=== PATIENT | male | born 1990 | race Caucasian/White ===

== ENCOUNTER 2016-09-22 13:16 | Emergency (ER) | payer SELFPAY ==
[2016-09-22 14:07] VITALS: BP 102/62
[2016-09-22] MEDS ORDERED: HYDROcodone/ACETAMIN 5-325 MG* 1 TAB PO ONE (14:22)
[2016-09-22] MEDS ORDERED: Penicillin VK TAB* 250 MG PO ONE (14:22)
--- NOTE | 2016-09-22 14:25 | UC ---
Dental HPI - HPI Summary HPI Summary: 25 yo male with dental pain and left cheek swelling x 1 day no f.c no relief with motrin - History of Current Complaint Chief Complaint: UCDentalProblem Stated Complaint: DENTAL COMPLAINT Time Seen by Provider: 09/22/16 13:58 Hx Obtained From: Patient Pain Intensity: 8 Pain Scale Used: Adult Non Verbal Aggravating: Heat, Cold, Chewing Alleviating: Nothing Related History: Swelling - Allergies/Home Medications Allergies/Adverse Reactions: Allergies Allergy/AdvReac Type Severity Reaction Status Date / Time Codeine Allergy GI Upset Verified 09/22/16 13:58 PMH/Surg Hx/FS Hx/Imm Hx Previously Healthy: Yes - Surgical History Surgical History: None - Family History Known Family History: Positive: Unknown - raised in foster care - Social History Alcohol Use: None Substance Use Type: None Smoking Status (MU): Light Every Day Tobacco Smoker Type: Cigarettes Amount Used/How Often: 5 CIGS DAILY Review of Systems Constitutional: Negative Skin: Negative Eyes: Negative ENT: Dental Pain Respiratory: Negative Cardiovascular: Negative Gastrointestinal: Negative Genitourinary: Negative Motor: Negative Neurovascular: Negative Musculoskeletal: Negative Neurological: Negative Psychological: Negative All Other Systems Reviewed And Are Negative: Yes Physical Exam Triage Information Reviewed: Yes Appearance: Well-Appearing, Well-Nourished, Pain Distress Vital Signs: Initial Vital Signs Temp 98.8 F 09/22/16 14:01 Pulse 86 09/22/16 14:01 Resp 18 09/22/16 14:01 BP 102/62 09/22/16 14:01 Pulse Ox 100 09/22/16 14:01 Vital Signs Reviewed: Yes Eyes: Positive: Conjunctiva Clear ENT: Positive: Hearing grossly normal. Negative: Nasal congestion, Nasal drainage, Trismus, Muffled/hoarse voice Dental: Positive: Cervical Lymphadenopathy, Other: - abysmal dentition/swollen gums/many teeth rotted to gum line Neck: Positive: Supple Respiratory: Positive: Lungs clear, Normal breath sounds, No respiratory distress, No accessory muscle use Cardiovascular Exam: Normal Musculoskeletal: Positive: ROM Intact, No Edema Neurological: Positive: Alert Psychological Exam: Normal Skin Exam: Normal Dental Complaint Course/Dx - Differential Dx/Diagnosis Provider Diagnoses: acute dentalgia. suspect dental abscess Discharge - Discharge Plan Condition: Stable Disposition: HOME Prescriptions: HYDROcodone/ACETAMIN 5-325 MG* [Orting 5-325 TAB*] 1 tab PO Q4H PRN #12 tab MDD 6 PRN Reason: Pain (Dental) Ibuprofen TAB* [Motrin TAB*] 600 mg PO Q6H PRN #40 tab PRN Reason: Pain Penicillin VK 500 MG TAB(NF) [Penicillin VK 500 mg Tab] 500 mg PO QID #28 tab Patient Education Materials: Toothache (ED) Forms: *Work Release Referrals: Alea Villagoemz MD [Primary Care Provider] - Additional Instructions: see dentist first available appt to er for new or worsening symptoms or if not better in 2 days
== END 2016-09-22 14:38 | disposition home or self-care (01) ==
LOC: UCCORT 13:16
DX: K08.89 Other specified disorders of teeth and supporting structures (principal); Z88.5 Allergy status to narcotic agent; F17.210 Nicotine dependence, cigarettes, uncomplicated
CPT/HCPCS: 99212; A9270-GY; G0463

== ENCOUNTER 2016-10-22 17:01 | Emergency (ER) | payer SELFPAY ==
[2016-10-22 17:09] VITALS: BP 113/69
[2016-10-22] MEDS ORDERED: Clindamycin CAP* 150 MG PO ONE ×2 (17:28→17:30)
--- NOTE | 2016-10-22 17:29 | UC ---
UC Dental HPI - HPI Summary HPI Summary: dental pain x 2 days no change with motrin bump upper gum no f/v - History of Current Complaint Chief Complaint: UCDentalProblem Stated Complaint: TOOTH PAIN Time Seen by Provider: 10/22/16 17:24 Hx Obtained From: Patient Onset/Duration: Gradual Onset Severity: Severe Pain Intensity: 8 Pain Scale Used: 0-10 Numeric Aggravating: Heat, Cold, Chewing, Nothing Related History: Previous Dental Care on Same Tooth, Swelling - Allergies/Home Medications Allergies/Adverse Reactions: Allergies Allergy/AdvReac Type Severity Reaction Status Date / Time Codeine Allergy GI Upset Verified 09/22/16 13:58 PMH/Surg Hx/FS Hx/Imm Hx Previously Healthy: Yes Respiratory History: Asthma - Surgical History Surgical History: None - Family History Known Family History: Positive: Unknown - raised in foster care - Social History Alcohol Use: None Substance Use Type: None Smoking Status (MU): Light Every Day Tobacco Smoker Type: Cigarettes Amount Used/How Often: 5 CIGS DAILY Review of Systems Constitutional: Negative Skin: Negative Eyes: Negative ENT: Dental Pain Respiratory: Negative Cardiovascular: Negative Gastrointestinal: Negative Genitourinary: Negative Motor: Negative Neurovascular: Negative Musculoskeletal: Negative Neurological: Negative Psychological: Negative All Other Systems Reviewed And Are Negative: Yes Physical Exam Triage Information Reviewed: Yes Appearance: Well-Appearing, No Pain Distress, Well-Nourished Vital Signs: Initial Vital Signs Temp 99.6 F 10/22/16 17:06 Pulse 84 10/22/16 17:06 Resp 16 10/22/16 17:06 BP 113/69 10/22/16 17:06 Pulse Ox 99 10/22/16 17:06 Eyes: Positive: Conjunctiva Clear ENT: Positive: Hearing grossly normal. Negative: Nasal congestion, Nasal drainage, Tonsillar exudate, Muffled/hoarse voice Dental: Positive: Gross Decay/Caries @, Abscess @ Neck: Positive: Supple, Nontender, No Lymphadenopathy Respiratory: Positive: Lungs clear, Normal breath sounds, No respiratory distress, No accessory muscle use Cardiovascular: Positive: RRR, No Murmur Bowel Sounds: Positive: Present Musculoskeletal: Positive: Strength Intact, ROM Intact Neurological Exam: Normal Neurological: Positive: Alert Psychological Exam: Normal Skin Exam: Normal Dental Complaint Course/Dx - Course Course Of Treatment: pt states he will see his dentist next week. aware of need to go to ER if symptoms worsen - Differential Dx/Diagnosis Provider Diagnoses: dental abscess Discharge - Discharge Plan Condition: Stable Disposition: HOME Prescriptions: Clindamycin Cap(NF) [Clindamycin Cap 300 mg Cap(NF)] 300 mg PO QID #28 cap HYDROcodone/ACETAMIN 5-325 MG* [[place] 5-325 TAB*] 1 tab PO Q4H PRN #12 tab MDD 6 PRN Reason: Pain Naproxen Sodium [Naproxen Sodium 500 MG TAB] 500 mg PO BID PRN #30 tab PRN Reason: Pain Patient Education Materials: Dental Abscess (ED) Referrals: Alea Villagomez MD [Primary Care Provider] - Images Dental: 1 - abscess/abysmal dentition
== END 2016-10-22 17:39 | disposition home or self-care (01) ==
LOC: UCCORT 17:01
DX: K04.7 Periapical abscess without sinus (principal); J45.909 Unspecified asthma, uncomplicated; Z88.5 Allergy status to narcotic agent; F17.210 Nicotine dependence, cigarettes, uncomplicated
CPT/HCPCS: 99212; A9270-GY; G0463

== ENCOUNTER 2016-12-04 15:45 | Emergency (ER) | payer SELFPAY ==
[2016-12-04 16:22] VITALS: BP 117/71
--- NOTE | 2016-12-04 16:31 | UC ---
Dental HPI - HPI Summary HPI Summary: Pt presents with c/o upper dental pain. Pt states that he is supposed to see a "dental specialist" to be arranged by Maik fisher. pt does not know the name of the specialist and states he has been waiting for the referral for 6 months. Pt reports that he has a "lump" on upper gum that maik fisher refuses to treat me with basic dental care because "they do not know what it is" - History of Current Complaint Stated Complaint: ORAL COMPLAINT Time Seen by Provider: 12/04/16 15:56 Hx Obtained From: Patient Onset/Duration: Gradual Onset, Lasting Days, Still Present Severity: Moderate Aggravating Factor(s): Heat, Cold, Chewing Related History: Swelling, Other - poor dentition, gross caries, fractured teeth - Allergies/Home Medications Allergies/Adverse Reactions: Allergies Allergy/AdvReac Type Severity Reaction Status Date / Time Bee Venom Allergy Unknown swelling, Verified 12/04/16 15:52 sob Coconut Oil Allergy Unknown Rash Verified 12/04/16 15:53 Codeine Allergy GI Upset Verified 12/04/16 15:52 Home Medications: Home Medications Acetaminophen TAB* [Tylenol TAB*] 650 mg PO Q4H PRN 12/04/16 [History Confirmed 12/04/16] Ibuprofen TAB* [Advil TAB*] 800 mg PO Q6H PRN 12/04/16 [History Confirmed ] PMH/Surg Hx/FS Hx/Imm Hx Previously Healthy: Yes - Surgical History Surgical History: None - Family History Known Family History: Positive: Unknown - raised in foster care - Social History Occupation: Unemployed Lives: With Family Alcohol Use: None Substance Use Type: None Smoking Status (MU): Light Every Day Tobacco Smoker Type: Cigarettes Amount Used/How Often: 1/2 PPD Have You Smoked in the Last Year: Yes Household Exposure Type: Cigarettes Review of Systems Constitutional: Negative Skin: Negative Eyes: Negative ENT: Other - poosr dentition, gross caries and fractured teeth, Respiratory: Negative Cardiovascular: Negative Gastrointestinal: Negative Genitourinary: Negative Motor: Negative Neurovascular: Negative Musculoskeletal: Negative Neurological: Negative Psychological: Negative Is Patient Immunocompromised?: No All Other Systems Reviewed And Are Negative: Yes Physical Exam Triage Information Reviewed: Yes Appearance: Pain Distress Vital Signs: Initial Vital Signs Temp 99.7 F 12/04/16 15:54 Pulse 94 12/04/16 15:54 Resp 18 12/04/16 15:54 BP 117/71 12/04/16 15:54 Pulse Ox 100 12/04/16 15:54 Vital Signs Reviewed: Yes Eye Exam: Normal Dental Exam: Other Dental: Positive: Percussion Tenderness @ - generalized, Gross Decay/Caries @ - generalized, Dental Fracture @ - generalized, Other: - fleshy lump left upper lip, smooth, circular, ~ 2mm wide. Respiratory: Positive: No respiratory distress Musculoskeletal Exam: Normal Neurological Exam: Normal Psychological Exam: Normal Skin Exam: Normal Dental Complaint Course/Dx - Course Course Of Treatment: I phoned [facility] to confirm that the patient is currently an established pt and the office did confirm that he is. I asked the hotel receptionist if the patient was being [id number] to a specialist and I was told no , and that the patient could be seen at 8:30 am on 12/05/16. I went in to discuss this with the pt and pt became aggravated and stated that he di dnot have insurance and would not go to the dentist tomrrow as he "would not do anything". Also, pt stated that antibiotics do not work on his dental problems and needed pain control. I explained that he needed to begin antibiotics to help manage his obvious poor dentition and gross dental caries. Pt became more aggravated and left the exam room and the building. - Differential Dx/Diagnosis Differential Diagnosis/Dx: Dental Abscess, Dental Caries, Fractured Tooth, Gingivitis Provider Diagnoses: generalized poor dentition. dental abscess. gross dental caries and fractures. pt left as an elopement Discharge - Discharge Plan Condition: Stable Disposition: HOME Patient Education Materials: Dental Abscess (ED), Toothache (ED) Referrals: Alea Villagomez MD [Primary Care Provider] - Additional Instructions: Pt was referred back to his dental care provider and appointment made for 8:30 am on 12/05/16. Pt stated he would not go to the appointment.
== END 2016-12-04 16:25 | disposition left against medical advice (07) ==
LOC: UCCORT 15:45
DX: K04.7 Periapical abscess without sinus (principal); K02.9 Dental caries, unspecified; Z91.030 Bee allergy status; Z88.5 Allergy status to narcotic agent; Z91.018 Allergy to other foods; F17.210 Nicotine dependence, cigarettes, uncomplicated
CPT/HCPCS: 99212; G0463